=== PATIENT | male | born 1950 | race African-American/Black ===

== ENCOUNTER 2020-01-05 13:35 | Inpatient (IN) | payer OTHER ==
[~2020-01-05] VITALS: Ht 190.5 cm; Wt 119.4 kg
[2020-01-05 13:42] VITALS: BP 109/70
[2020-01-05 16:54] LABS: MCH 27.9 pg (26.0-34.0)
[2020-01-05 16:57] LABS: HEMATOCRIT 39.6 % (42.0-52.0); HEMOGLOBIN 12.7 gm/dL (14.0-18.0); MCV 87.1 fL (80.0-100.0); RBC 4.54 mil/uL (4.50-6.00); RDW 14.3 % (10.5-14.5)
[2020-01-05 16:58] LABS: WBC 58.2 thou/uL (4.0-11.0)
[2020-01-05 17:00] LABS: ANION GAP 9 mmol/L (7-16); BUN 23 mg/dL (7-18); CALCIUM 9.4 mg/dL (8.5-10.1); CHLORIDE 99 mmol/L (98-107); CO2 27 mmol/L (21-32); CREATININE 1.6 mg/dL (0.7-1.3); GLUCOSE 114 mg/dL (74-106); POTASSIUM 4.2 mmol/L (3.5-5.1); SODIUM 135 mmol/L (136-145)
[2020-01-05 17:11] LABS: DIRECT BILIRUBIN 0.4 mg/dL (<0.1-0.2); LIPASE 61 U/L (73-393); SGOT 48 U/L (15-37); SGPT 56 U/L (30-65); TOTAL BILIRUBIN 0.8 mg/dL (0.2-1.0); TOTAL PROTEIN 8.7 g/dL (6.4-8.2); TROPONIN-I <0.06 ng/mL (<0.06)
[2020-01-05 17:57] LABS: ABSOLUTE NEUTROPHILS 53.5 thou/uL (1.4-8.2); PLATELET COUNT 298 thou/uL (150-400); PLATELET ESTIMATE NORMAL
[2020-01-05 18:13] LABS: URINE BLOOD TRACE (Negative); URINE CLARITY CLEAR; URINE GLUCOSE-RANDOM* NEGATIVE (Negative); URINE KETONES NEGATIVE (Negative); URINE LEUKOCYTES-REFLEX TRACE (Negative); URINE NITRITE-REFLEX NEGATIVE (Negative); URINE PROTEIN (DIPSTICK) NEGATIVE (Negative); URINE SPECIFIC GRAVITY 1.025 (1.005-1.035)
[2020-01-05 18:15] LABS: ICTOTEST (BILI CONFIRMATORY) Negative (Negative); URINE BILIRUBIN NEGATIVE (Negative); URINE COLOR DK YELLOW
[2020-01-05 21:06] VITALS: BP 123/76; BP 133/72
[2020-01-06] MEDS ORDERED: NORVASC 2.5 MG2.5 M1 (00:02)
[2020-01-06] MEDS ORDERED: MELOXICAM15 MG (00:02)
[2020-01-06] MEDS ORDERED: FAMOTIDINE 20 M20 MG (00:03)
[2020-01-06] MEDS ORDERED: FLEXERIL (00:03)
[2020-01-06] MEDS ORDERED: OSTEO BI-FLEX1 EAC1 ×2 (00:04→00:05)
[2020-01-06] MEDS ORDERED: METRONIDAZOLE500 M4 ×3 (00:04→00:07)
[2020-01-06] MEDS ORDERED: D3-200050 MCG (00:05)
[2020-01-06] MEDS ORDERED: B COMPLEX1 EACH (00:06)
[2020-01-06] MEDS ORDERED: CENTRUM SILVER1 EAC7 (00:07)
[2020-01-06] MEDS ORDERED: TRAVOPROST2.5 ML (00:07)
[2020-01-06] MEDS ORDERED: DORZOLAMIDE 2%10 ML (00:08)
--- NOTE | 2020-01-06 00:52 | NUR ---
PT ADMITTED TO THE UNIT AT APPROXIMATELY 2100. PT IS A/O X4 AND VERY PLEASANT. EMERGENCY DEPARTMENT NOTIFIED PHYSCIAN OF PATIENTS ADMISSION. PT DOES NOT C/O PAIN OR DISCOMFORT AT THIS TIME. PT IS CURRENTLY IN HIS BED AND APPEARS TO BE SLEEPING. WILL CONTINUE TO MONITOR. FALL PRECAUTIONS ARE IN PLACE, CALL LIGHT IS WITHIN REACH.
[2020-01-06 04:11] VITALS: BP 122/63
[2020-01-06 05:51] LABS: HEMATOCRIT 36.2 % (42.0-52.0); HEMOGLOBIN 11.4 gm/dL (14.0-18.0); MCH 27.7 pg (26.0-34.0); MCHC 31.6 g/dL (28.0-37.0); MCV 87.5 fL (80.0-100.0); PLATELET COUNT 272 thou/uL (150-400); RBC 4.14 mil/uL (4.50-6.00); RDW 14.3 % (10.5-14.5)
[2020-01-06 06:48] LABS: ABSOLUTE NEUTROPHILS 48.5 thou/uL (1.4-8.2)
[2020-01-06 06:49] LABS: PLATELET ESTIMATE NORMAL
[2020-01-06 07:50] VITALS: BP 123/78
--- NOTE | 2020-01-06 08:47 | EKG ---
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
--- NOTE | 2020-01-06 15:05 | NUR ---
PT ADMITTED RELATED TO N/V DEHYDRATION. CM REVIEWED CHART AND SPOKE WITH CARE TEAM. CM CALLED ANDS POKE WITH PT THIS DAY. PT APPEARED TO BE A&O X4. CM ROLE INTRODUCED. PT INDICATED HE LIVES IN AN APARTMETN WITH A ROOMMATE WITH 2-3 STEPS TO ENTER AND NO STEPS INSIDE. 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 PT INDICATED NO DME. PT INDICATED HE PLANS TO RETURN HOME ONCE MEDICALLY STABLE. PT TO HAVE A CT OF ABD AND PELVIS. GI INDICATED THEY MIGHT NEED TO DO AN EGD. CM TO FOLLOW INDICATED WITH DC PLANNING. SHOULD PT BE MEDICALLY STABLE TO DC OVER WEEKEND AND NEED HH SERVICES [facility] AT FAX ORDERS TO .
--- NOTE | 2020-01-06 15:46 | HC ---
[facility] [place] [address] CONSULTATION Name: ERIC ALLEN Room #: 457-P ADM IN M.R.#: [id number] Admission: 01/05/20 Attend Phys: Josue Iyer MD, [facility] Discharge: Date of : 48 Report #: [id number] THIS REPORT FOR: cc: Josue Iyer MD LOCATED WITHIN [facility] FACE Josue Iyer MD [facility] Arpan Osorio MD ~ CC: Niles Iyer MD REQUESTING PHYSICIAN: Josue Iyer MD REASON FOR CONSULTATION: Leukocytosis. HISTORY OF PRESENT ILLNESS: The patient is a 69-year-old male from the [place] area, who has about a 5 or 8-month history of slow change in his bowels without any blood in his urine or stool, also sweats for the last month or two. Also noted to have leukocytosis about 2 months ago with a white count when he saw Dr. Curtis about a month ago of 25,000. He had a bone marrow biopsy with standard cytogenetics were normal. Next generation sequencing were normal except for a variant of uncertain significance and ADA. The flow cytometry did not reveal monoclonal population and the pathology morphology review did not reveal any underlying specific abnormalities other than mild hypercellularity. There might have also been a few extra megakaryocytes, but no signs of leukemia, lymphoma, infiltrative process or granulomas were seen. The patient says that his bowels a little bit slower than usual for a couple of months. He has not seen any blood in his urine or stool. He says his last colonoscopy was about 7 years or so ago, somewhere in [facility]. He has also had trouble with nausea and vomiting for about 2-3 weeks. This seems to occur about 30-60 minutes after eating. It is also associated with lower abdominal almost near the umbilicus pain. He said that about 9 months ago, he weighed 200 pounds. He has been told he weighs about 260 lately. He has not had any rash. He has old ankle swelling, no worse than usual. 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 Nonsmoker, no alcohol, no street drugs. FAMILY HISTORY: Father had what sounds like a stroke about age 50. May have been a little bit heavy on the alcohol. Mother had diabetes. Two sisters; one had diabetes, one had some type of a stomach infection. Three children alive and well. No pets at home. MEDICATIONS: At this time in the hospital include famotidine which I just added, Tylenol p.r.n., Zofran p.r.n., IV fluids. [facility] [address] [place] [address] CONSULTATION Name: ERIC ALLEN Room #: 457-P [facility] IN M.R.#: [id number] Admission: 01/05/20 Attend Phys: Josue Iyer MD, FAAF Discharge: Date of : 48 Report #: [id number] LABORATORY DATA: Lab tests available from this admission include a BUN of 23, creatinine of 1.6. Liver functions normal, though his alkaline phosphatase was 228; ALT 56, which is normal. Total protein 8.7, which is slightly high with an albumin of 3. C-reactive protein 210.9, which is elevated. White count was 58.2, today it is 51. Hemoglobin was 12.7, today it is 11.4 with an MCV of 87.5, RDW 14.3, platelets of 272, 87% neutrophils, 5% bands, 1% lymphocytes, 7% monocytes with an AST of 53.5. Sed rate 73. UA; nitrite negative, no cells, no protein. Imaging done this admission include a KUB which talked about elevation of the right diaphragm. No evidence of pneumonia, pneumothorax or pleural effusion. No evidence of obstruction, ileus or free air. Osteophytes noted. Note that the CAT scan chest, abdomen and pelvis has been ordered by myself is currently pending. PHYSICAL EXAMINATION: VITAL SIGNS: Height 6 feet 3 inches, 190.5 cm; weight 260 pounds, which is 118.2 kilograms. MOOD: Pleasant, conversant. NEUROLOGIC: Speech and thought pattern normal, slightly anxious. HEART: Regular rate. ABDOMEN: Slightly obese. No definite masses, but we will probably do a portillo exam after dictation complete and may amend this. LYMPHATICS: No lymph nodes noted in the neck, axilla or groin. EXTREMITIES: Have SCDs in place. May have some trace edema. SKIN: The patient's skin is slightly wet from sweats. ASSESSMENT AND PLAN: 1. Leukocytosis with 40-pound weight loss, night sweats and abdominal pain, most likely elevated white count is reactive to underlying process yet to be determined. I am somewhat concerned with elevation of sed rate and C-reactive protein. Also, this may represent a lymphoproliferative disorder or other malignancy. We will obtain CAT scan chest, abdomen and pelvis. We will also consult Gastroenterology because of the GI symptoms and also begin the patient on Pepcid. 2. Mild anemia. Continue following. 3. History of glaucoma. Meds per others. We will follow with you. <ELECTRONICALLY SIGNED> By: Arpan Osorio MD 01/06/20 1546 0752 09 Arpan Osorio MD /jose
--- NOTE | 2020-01-06 18:55 | NUR ---
Assumed pt care at 7am.Pt in bed resting without c/o.Assessment completed.vss. Dr Jaramillo here,order noted.Pt kept npo for ct that was completed after breakfast.Pt resumed previous diet.Dr Kirkland here and reviewed ct report,he wanted this rn notified Dr Iyer about the ct scan report.Dr iyer here rounded on pt later this evening and discussed the care option with pt and his son. Will continue to monitor.
[2020-01-06 19:09] VITALS: BP 134/75
[2020-01-07 01:39] LABS: URINE BILIRUBIN NEGATIVE (Negative); URINE BLOOD TRACE (Negative); URINE CLARITY CLEAR; URINE COLOR YELLOW; URINE GLUCOSE-RANDOM* NEGATIVE (Negative); URINE KETONES TRACE (Negative); URINE LEUKOCYTES-REFLEX NEGATIVE (Negative); URINE NITRITE-REFLEX NEGATIVE (Negative); URINE PROTEIN (DIPSTICK) TRACE (Negative)
[2020-01-07 03:42] VITALS: BP 119/70
--- NOTE | 2020-01-07 03:51 | NUR ---
PATIENT AOX4 MAKES NEEDS KNOWN. PATIENT HAD HIGH TEMP X2 AND CHARTED ON [employer], AND PATIENT HEART RATE WAS >120. CALLED OFF PREMISE SERVICE REPRESENTATIVE NEW ORDER OF UA, 2 SETS OF BLOOD CULTURES, PORTABLE X RAY, ZOYSN 2.25 GRAM Q 8 HOURS, X1 DOSE OF VANCO. CBC WITH DIFF, CMP AND LIPASE IN THE AM. ABT GIVEN AND AWAITING FOR LAB RESULTS. PATIENT VERBALISED FEELING BETTER. VS WNL. PATIENT IN BED ASLEEP AT THIS TIME BREATHING REGULAR AND UNLABOURED.
[2020-01-07 06:09] LABS: HEMATOCRIT 35.4 % (42.0-52.0); MCH 27.5 pg (26.0-34.0); MCHC 31.2 g/dL (28.0-37.0); MCV 88.4 fL (80.0-100.0); RDW 14.4 % (10.5-14.5)
[2020-01-07 06:11] LABS: WBC 50.7 thou/uL (4.0-11.0)
[2020-01-07 06:22] LABS: ALBUMIN 2.4 g/dL (3.4-5.0); CALCIUM 8.4 mg/dL (8.5-10.1); CREATININE 1.5 mg/dL (0.7-1.3); POTASSIUM 4.1 mmol/L (3.5-5.1); TOTAL BILIRUBIN 0.5 mg/dL (0.2-1.0); TOTAL PROTEIN 7.2 g/dL (6.4-8.2)
[2020-01-07 07:41] VITALS: BP 127/76
[2020-01-07 12:46] VITALS: BP 125/74
[2020-01-07 17:28] VITALS: BP 132/82
[2020-01-07 19:40] VITALS: BP 136/69
--- NOTE | 2020-01-08 01:00 | NUR ---
ASSUMED CARE OF PT AT 1900. PT IS A/O X4. PT IS VERY LETHARGIC AND STATED HE JUST "DON'T FEEL WELL." PT HAD AN ELEVATED FEVER. MEDICATION GIVEN. PT IS AFEBRILE AT THIS TIME. NO COMPLAINTS OF PAIN, NAUSEA, OR DISCOMFORT UPON ASSESSMENT. PT IS NOW LYING IN HIS BED AND APPEARS TO BE SLEEPING. CALL LIGHT IS WITHIN REACH. WILL CONTINUE TO MONITOR.
[2020-01-08 05:52] LABS: HEMATOCRIT 36.4 % (42.0-52.0); HEMOGLOBIN 11.4 gm/dL (14.0-18.0); MCH 27.8 pg (26.0-34.0); MCHC 31.4 g/dL (28.0-37.0); MCV 88.4 fL (80.0-100.0); PLATELET COUNT 267 thou/uL (150-400); RBC 4.12 mil/uL (4.50-6.00); RDW 14.6 % (10.5-14.5)
[2020-01-08 05:57] LABS: WBC 51.5 thou/uL (4.0-11.0)
[2020-01-08 06:00] LABS: CALCIUM 8.4 mg/dL (8.5-10.1); CREATININE 1.7 mg/dL (0.7-1.3); POTASSIUM 4.3 mmol/L (3.5-5.1)
[2020-01-08 06:57] LABS: ABSOLUTE NEUTROPHILS 42.7 thou/uL (1.4-8.2); PLATELET ESTIMATE NORMAL
[2020-01-08 07:38] VITALS: BP 126/71
--- NOTE | 2020-01-08 13:30 | NUR ---
called, answering service agreed to send a message to Dr. Iyer: patient complains of abdomen pain in the left side, worse than ever, asking for some pain medication stronger than Tylenol.
--- NOTE | 2020-01-08 15:03 | NUR ---
Patient complains that Tramadol does not work on the pain, [phone] called, messaged sent to Jaylon Capone.
[2020-01-08 15:58] VITALS: BP 152/92
[2020-01-08 20:09] VITALS: BP 124/67
[2020-01-09] VITALS (16 sets, daily range): BP systolic 116–172; BP diastolic 72–100
[2020-01-09 04:30] LABS: APTT 34.5 Seconds (24.5-32.8); INR 1.2; PROTIME 11.9 Seconds (9.3-11.4)
[2020-01-09 04:36] LABS: ALBUMIN 2.3 g/dL (3.4-5.0); CALCIUM 8.5 mg/dL (8.5-10.1); POTASSIUM 4.9 mmol/L (3.5-5.1); TOTAL BILIRUBIN 0.6 mg/dL (0.2-1.0); TOTAL PROTEIN 7.8 g/dL (6.4-8.2)
[2020-01-09 04:38] LABS: HEMOGLOBIN 12.1 gm/dL (14.0-18.0); MCH 27.4 pg (26.0-34.0); MCV 88.6 fL (80.0-100.0); PLATELET COUNT 312 thou/uL (150-400); RBC 4.41 mil/uL (4.50-6.00); RDW 14.5 % (10.5-14.5)
[2020-01-09 04:39] LABS: WBC 64.9 thou/uL (4.0-11.0)
[2020-01-09 05:12] LABS: LARGE PLATELETS OCCASIONAL
--- NOTE | 2020-01-09 14:20 | NUR ---
PT IS TO HAVE LIVER BIOPSY THIS DAY. NURSE TO INQUIRE TO PHYSICIAN ABOUT PT AND OT EVALS THEY AREN'T ORDRED AND PHYSICIAN SITES WEAKNESS ONE REASON FOR VISIT. CM TO FOLLOW INDICATED WITH DC PLANNING.
--- NOTE | 2020-01-09 21:06 | NUR ---
REPORT RECEIVED FROM DORENE Connolly/RN, ASSUMED CARE OF THE PATIENT AT AROUND 1600. PATIENT ALERT AND ORIENTED X 4. REFUSED DINNER, BUT KEPT HIS ENSURE, STATES EATING MAKES IT WORST. PAIN LEVEL 3/10, LAST PAIN MED GIVEN AT 1530. SPOKE WITH THE DAUGHTER/JAYLYN AND UPDATE WAS GIVEN. WILL CONTINUE TO MONITOR.
--- NOTE | 2020-01-10 05:00 | NUR ---
Assumed pt care at 1900. A/OX4, VSS. C/o abd pain,Nausea medicated per EMAR with relief reported. Continent of B&B. IVF/ABTs infusing w/o any problems voiced. Pt verbalizes feeling better this morning. Fall precautions in place.
[2020-01-10 08:49] VITALS: BP 142/85
[2020-01-10 15:13] VITALS: BP 121/65
--- NOTE | 2020-01-10 15:16 | NUR ---
PT AND OT ASSESSED PT THIS DAY. BOTH INDICATED THAT THEY THOUGHT PT WOULD PROGRESS TO BE SAFE TO BE ABLE TO DC BACK TO HIS APARTMENT WITH HOME HEALTH SERVICES ONCE MEDICALLY STABLE. STILL AWAITING LIVER BIOPSY RESULTS. CM TO FOLLOW INDICATED WITH DC PLANNING.
--- NOTE | 2020-01-10 16:12 | H ---
[facility] [place] [address] HISTORY AND PHYSICAL Name: ERIC ALLEN Room #: 457-P [facility] IN M.R.#: [id number] Admission: 01/05/20 Attend Phys: Josue Iyer MD, FAAF Discharge: Date of : 48 Report #: [id number] THIS REPORT FOR: cc: Josue Iyer MD FAA FACEP Josue Iyer MD FAA FACEP Josue Iyer MD FAA FACEP ~ CC: Josue Osorio MD DATE OF SERVICE: 01/05/2020 CHIEF COMPLAINT: Nausea, vomiting and weakness. HISTORY OF PRESENT ILLNESS: The patient is a 69-year-old black male, patient of mine, understudy at currently for leukocytosis. His white count was 20-25,000 at time of consultation with Hematology/Oncology there about 6-8 weeks ago. He had a bone marrow biopsy about 2-3 weeks ago, which was reported to show no evidence of cancer verbally to him. Over the past 2 weeks, he has been ill with nausea, vomiting and general debility. He was evaluated in the Emergency Room by my direction on the day of admission, 01/05/2020, and white count there was 58.2. He was admitted, IV fluids were instituted as well as antiemetics and Hematology/Oncology consult was obtained to evaluate his severe leukocytosis. PAST MEDICAL HISTORY: Colon polyps, glaucoma, hypertension, gastroesophageal reflux disease, constipation. MEDICATIONS: Norvasc 10 mg p.o. daily, meloxicam 15 mg 1 p.o. daily p.r.n. pain, Flexeril 10 mg 1 p.o. t.i.d. p.r.n. muscle spasm, famotidine 20 mg 1 p.o. b.i.d., Benefiber and vitamin D3. ALLERGIES: No known drug allergies. FAMILY HISTORY: No cancers. 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 Nonsmoker, nondrinker. Has a son in the [place] area. REVIEW OF SYSTEMS: GENERAL: He has had frequent nausea and vomiting, difficulty eating over the last 2 weeks, generalized debility. EYES: No visual changes. ENT: No problems with hearing, swallow, taste or smell. CARDIOVASCULAR: No chest pain or palpitations. RESPIRATORY: No difficulty breathing. GASTROINTESTINAL: Nausea and vomiting. [facility] [address] [place] [address] HISTORY AND PHYSICAL Name: ERIC ALLEN Room #: 457-P [facility] IN M.R.#: [id number] Admission: 01/05/20 Attend Phys: Josue Iyer MD, FAAF Discharge: Date of : 48 Report #: [id number] GENITOURINARY: No problems urinating. MUSCULOSKELETAL: He does have arthritis, kept at bay with meloxicam. NEUROLOGIC: No paresis, paralysis or paresthesias. PSYCHIATRIC: No disturbing thoughts. DERMATOLOGIC: No disturbing lesions or rash. Remainder of systems review is negative. OBJECTIVE: VITAL SIGNS: Temperature is 36.8, pulse 118, respirations 14, blood pressure 109/70, pulse ox on room air is 97%. GENERAL: He is alert, pleasant, in conversation. No acute distress. Denies pain. HEENT: Pupils equal, round, reactive to light and accommodation. Extraocular muscles intact. Pharynx unremarkable with slightly moist mucous membranes. NECK: Supple. COR: S1, S2 regular, tachycardia. CHEST: Clear. ABDOMEN: Soft, nontender. EXTREMITIES: No cyanosis, clubbing or edema. NEUROLOGIC: Intact without focal deficit. LABORATORY EVALUATION: CBC: White count is 58.2, hemoglobin 12.7, hematocrit 39.6, platelets 298,000. Serum chemistry: Sodium 135, potassium 4.2, chloride 99, CO2 of 27, BUN 23, creatinine 1.6. BNP is 220. Lactate 1.5, alkaline phosphatase 228. Troponin less than 0.06. Direct bilirubin 0.4, total bilirubin 0.8, calcium is 9.4, AST 48, ALT 56, total protein 8.7, albumin 3.0, lipase 61. Acute abdominal series x-rays done from the Emergency Department show elevation of right hemidiaphragm with no evidence of pneumonia, pneumothorax or pleural effusion. Upright and supine views of the abdomen normal without obstruction or ileus or free air. Osteophytes seen at multiple levels in the lower thoracic and lumbar spine. ASSESSMENT: Marked leukocytosis, nausea and vomiting, volume depletion and debility. PLAN: Admit to hospital, IV fluid rehydration, Hematology/Oncology consult, antiemetics, hyperviscosity concern, consider Lovenox as in preventive options. <ELECTRONICALLY SIGNED> By: Josue Iyer MD, KISHA, FACEP 01/10/20 1612 1745 1805 Josue Iyer MD, KISHA, FACEP /nt
--- NOTE | 2020-01-10 20:39 | NUR ---
ASSUMED CARE OF PATIENT AT 0715, PATIENT ALERT AND ORIENTED X 4. DENIEDURING REPORT, BUT C/O PAIN WITH RIGHT ABD. LOWER QUAD. PATIENT RECEIVED FENTANYL 75MCG THIS AM. PATIENT C/O NAUSEA THIS AM, RECEIVED ZOFRAN 4MG IV. PATIENT HAD GOOD PAIN RELIEF AMD NAUSEA IMPROVED. PATIENT UNABLE TO EAT ANY OF THE MEALS TODAY, STATES WHEN HE EATS PAIN BECOMES WORSE. PT/OT ORDERED AND PATIENT WALKED IN HALLWAYS WITH PT, UP TO CHAIR FOR A COUPLE OF HOURS. UPDATE GIVEN TO SON/BRYCE THIS SHIFT. PATIENT CONTINUES WITH D51/2 NS WITH 20 KCL AT 100CC/HR. ZOSYN STILL CONTINUES. PO PAIN MEDICATION ORDER PER DR BLACK,Roger DN ADDED COMPAZINE IF ZOFRAN NOT EFFECTIVE. WILL CONTINUE TO MONITOR.
[2020-01-10 21:27] VITALS: BP 154/98
--- NOTE | 2020-01-11 04:37 | NUR ---
Assumed pt care at 1900. A/OX4,VSS. Denied pain,N/V at the beginning of the shift. C/o acidity/nausea at this time as well as pain, medicated per EMAR and effective. Pt's IV on left hand leaking,re-inserted after 5 attempts to RAC by the doping supervisor. Pt is continent of bladder voiding per urinal adequate amt. Fall precauitons in place,calls approp. Sinus tachy/SR on the monitor. Resting quietly at this time, will continue to monitor pt.
[2020-01-11 06:32] LABS: HEMOGLOBIN 11.5 gm/dL (14.0-18.0); RBC 4.21 mil/uL (4.50-6.00); RDW 14.6 % (10.5-14.5)
[2020-01-11 06:37] LABS: HEMATOCRIT 36.7 % (42.0-52.0); MCH 27.3 pg (26.0-34.0); MCHC 31.3 g/dL (28.0-37.0); MCV 87.1 fL (80.0-100.0); PLATELET COUNT 308 thou/uL (150-400)
[2020-01-11 06:43] LABS: WBC 56.4 thou/uL (4.0-11.0)
[2020-01-11 07:00] LABS: ALBUMIN 2.2 g/dL (3.4-5.0); CREATININE 1.8 mg/dL (0.7-1.3); POTASSIUM 4.6 mmol/L (3.5-5.1); TOTAL BILIRUBIN 0.8 mg/dL (0.2-1.0); TOTAL PROTEIN 7.7 g/dL (6.4-8.2)
[2020-01-11 07:12] VITALS: BP 111/71
[2020-01-11 08:50] LABS: ABSOLUTE NEUTROPHILS 49.1 thou/uL (1.4-8.2); LARGE PLATELETS OCCASIONAL
[2020-01-11 15:46] VITALS: BP 127/68
--- NOTE | 2020-01-11 16:07 | PATH ---
[facility] [address] [place] [address] PATHOLOGY RPT PROCEDURE Name: ABHINAV ALLEN Room #: 457-P ADM IN M.R.#: [id number] Admission: 01/05/20 Date of : 48 Discharge: Report #: [id number] Path Case #: [id number] L[facility] Accession Number: [id number] . 01 Material submitted: . liver - LIVER BIOPSY . 01 Clinical history: . N/V, dehydration, multiple masses, leukocytosis . 02 Diagnosis: Liver, needle core biopsy: - MODERATELY DIFFERENTIATED ADENOCARCINOMA, SEE COMMENT. (IUV:web marketing coordinator; 01/11/2020) MBR 01/11/2020 1423 Local . 02 Comment: Examination shows a gland forming malignancy with numerous mitotic figures and high nuclear to cytoplasmic ratio. Occasional intracellular mucin is identified. Based on the EMR of elevated CEA, as well as CA19-9, as well as pancreatic mass a limited panel of immunohistochemical stains is performed. The tumor shows strong membranous reactivity with CK7. Scattered faint reactivity is noted in approximately 10% of the cells with CK19. CDX2, [place] 3, CK20, as well as TTF-1 are nonreactive within the tumor. The immunohistochemical stains likely are supportive of an adenocarcinoma of hepatobiliary origin. The nonreactive immunohistochemical stains argue against a gastrointestinal primary, as well as a lung adenocarcinoma in addition to a poorly differentiated hepatocellular carcinoma. . Co-review: Reviewed by A1-level [address] Michaela Pizarro. . Findings of this case are telephoned to Miss Lopez, Dr. Arpan Osorio's nurse. A voicemail message is left on her telephone line at approximately 2:10 p.m. on 01/11/2020. Findings are discussed with Dr. Petty 3:45 pm on 01/11/2020. . . . . . (IUV:web marketing coordinator; 01/11/2020) . 02 Electronically signed: . Claudia Sandoval MD, Pathologist NPI- [id number] . [address] [place] [address] PATHOLOGY RPT PROCEDURE Name: ABHINAV ALLEN Room #: 457-P [facility] IN M.R.#: [id number] Admission: 01/05/20 Date of : 48 Discharge: Report #: [id number] Path Case #: [id number] Gross description: . The specimen is received in formalin, labeled "Abhinav Ramses, liver". Received are three needle cores of pale stauffer to orange-stauffer soft tissue ranging in length from 0.5 to 1.2 cm in length by 0.1 cm in diameter. The specimen is submitted entirely in cassette A1 through A3. (CAA; 01/09/2020) QAC/QAC 01/09/2020 1621 Local . 02 Pathologist provided ICD-10: C22.9 . 02 CPT . 404059, R03398, G26048 Specimen Comment: A courtesy copy of this report has been sent to [phone] Specimen Comment: Report sent to Performed at: [address], [place], [place] [id number] MD Antwon Pedro MD Phone: [phone] Performed at: [address] [id number] MD Claudia Sandoval MD Phone: [phone]
--- NOTE | 2020-01-11 19:32 | NUR ---
ASSUMED CARE OF THE PATIENT AT 0715, PATIENT ALERT AND ORIENTED X 4, PATIENT UP WITH PT TO THE CHAIR, PATIENT ATE SOME OF BREAKFAST AND LUNCH, BUT CAUSES NAUSEA EACH TIME. ZOFRAN 4MG AND COMPAZINE PO GIVEN. C/O PAIN WITH ABDOMEN, OXYCODONE [address] FLORES HERE THIS AFTERNOON, PLAN IS STAY 2 MORE DAYS AND THEN HOME WITH HOMEHEALTH. BIOPSY RESULTS NOT AVAILABLE YET, UPDATE GIVEN TO DAUGHTER/JAYLYN AND SON/ERIC. NO BM THIS SHIFT. WILL CONTINUE TO MONITOR.
[2020-01-11 19:55] VITALS: BP 128/78
[2020-01-12 03:10] VITALS: BP 130/84
--- NOTE | 2020-01-12 04:53 | NUR ---
Assumed pt care at 1900. A/OX4,VSS. Denied any needs at HS. No pain or N/V. C/o abd pain this morning LOP 7/10 medicated with Oxycodone 5mg with relief reported. IVF/ABTs infusing via RAC w/o any problems. Pt voiding per urinal. Fall precautions in place. NSR on telemetry. Resting quietly at this time,will continue to monitor pt.
[2020-01-12 07:11] VITALS: BP 135/84
--- NOTE | 2020-01-12 12:25 | NUR ---
Onc had discused with pt "option of chemotherapy with recipe called flolfiririnox. Which would require port placement. Discussed option of second opinions if he wishes. Discussed completing antibiotics and port placement and chemotherapy. Could do visit via telehealth next week to discuss with patient and family. Would like patient off antibiotics before considering chemotherapy." Cm received pc from nurse indicating that pt's son was in room asking about dc planning. Cm called and spoke with pt and indicated that treatment plan would be determined by pt, onc, and dr. chowdhury and that pt and ot had indicated that pt would be safe to return home once medically stable with hh services. Pt indicated no preference for hh provider. Cm indicated that referrals would be sent once dc is indicated. Cm to follow as indicated with dc planning.
[2020-01-12 14:48] VITALS: BP 114/62
--- NOTE | 2020-01-12 15:19 | NUR ---
Assumed pt care at 7am.Pt in bed resting without c/o.Assessment completed.vss. Dr Jaramillo here early this am,notified this rn that pt will possibly need port-a-cath for chemo but has to discuss with Dr Iyer.Am med given and well tolerated with diet.Pt ambulated in hallways with therapist later this shift. Good endurance noted.Received call from pt dtr,updates given.Son came around lunch to visit and updates given as well.Pt in bed resting and watching tv. Will continue to monitor.
[2020-01-12 20:15] VITALS: BP 124/61
[2020-01-13 00:32] VITALS: BP 142/62
--- NOTE | 2020-01-13 03:57 | NUR ---
patient aox4 makes needs known. patient was coughing and had a heart rate of >120. called dr. gannon for robittussium with codine 5ml/10ml q 6 hours prn. and ekg. patient requested ekg in the am. fall precaution in place. patient in bed asleep at this time breathing regular and unlaboured.
[2020-01-13 07:20] VITALS: BP 110/56
--- NOTE | 2020-01-13 09:29 | EKG ---
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 Scientist: CELSO : 1950 Requested By: Josue Iyer Order Number: [id number] MD: Hernán Clark Measurements Intervals [place] Rate: 93 P: 29 AK: 148 QRS: 58 QRSD: 89 T: 14 QT: 396 QTc: 493 Interpretive Statements Sinus rhythm Atrial premature complexes Poor R wave progression Compared to ECG 01/05/2020 15:17:12 Atrial premature complex(es) now present Electronically Signed On 01-13-2020 9:29:03 CDT by Hernán Clark [email or web address] <ELECTRONICALLY SIGNED> By: Hernán Clark MD, [facility] 01/13/2029 2 2 Hernán Clark MD, [facility] /EPI
[2020-01-13 15:25] VITALS: BP 127/46
--- NOTE | 2020-01-13 15:30 | NUR ---
Care team indicaed that pt has multiple masses involving pancreas, liver, possibly lung consistent with metastatic cancer; LIVER BX SHOWED MODERATELY DIFFERENTIATED ADENOCARCINOMA. 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 pt is on 3L via nc at this time. cm had sent referral to a for services upon dc. Physicain hadn't indicated anticipated dc home over weekend. Pt will likely need o2 testing for possible o2 needs upon dc. Should pt be medically stable to dc home over weekend and need home o2 please contact [facility] at fax . notify a at fax orders to . Cm to follow as indicated with dc planning.
--- NOTE | 2020-01-13 17:02 | NUR ---
PT ASSESSED AT START OF SHIFT. PT STATES HE'S FEELING SOME BETTER. DENIES NAUSEA OR PAIN. AMBULATED THE HALLS TWICE W/ THERAPIST AND HAD SOME SOB AFTERWARDS BUT DID WELL. EATING SM AMTS. COUGHING SOME INTERMITTENTLY. EXPLAINED HE WILL NEED O2 AT HOME.
[2020-01-13 20:52] VITALS: BP 112/70
[2020-01-14 00:15] VITALS: BP 130/78
--- NOTE | 2020-01-14 03:32 | NUR ---
PATIENT AOX4 MAKES NEEDS KNOWN. PATIENT USING URINAL AT NIGHT. PATIENT IS CALM AND COOEPRATIVE WITH CARE AND MEDS. FALL PRECAUTION IN PLACE.PATIENT IN BED ASLEEP AT THIS TIME BREATHING REGULAR AND UNLABOURED.
[2020-01-14 08:00] VITALS: BP 121/71
[2020-01-14 15:09] VITALS: BP 118/69
--- NOTE | 2020-01-14 19:56 | NUR ---
Assumed pt care at 7am.Pt in and out of bed with assist.Fair endurance noted. Assessment completed.vss.Pt tolerated meds but has fair appetite.Dr Iyer here,order noted.Updates given to pt family whe called today.Pt will possibly dc home on thursday after chemo access placement.No soa or verbal c/o.Report off to star moise.
[2020-01-14 21:46] VITALS: BP 123/77
--- NOTE | 2020-01-15 05:32 | NUR ---
RECIEVED CARE OF THIS PATIENT AT 1900. PATIENT ALERT AND ORIENTED X4. UP WITH SBA. USES URINAL. C/O PAIN AND NAUSEA, MED GIVEN FOR BOTH. IV PATENT IN RAC WITH FLUIDS INFUSING. O2 AT 3L/NC. SLEPT OFF AND ON DURING NIGHT.
[2020-01-15 08:40] VITALS: BP 113/75
[2020-01-15 15:32] VITALS: BP 119/82
[2020-01-15 19:02] VITALS: BP 115/66
--- NOTE | 2020-01-15 20:53 | NUR ---
ASSUMED PT CARE AT 0700. PT A X OX 4. ON 3L/O2/NC. STANDBY ASST. USES URINALS AT BEDSIDE.IV RIGHT UPPER ARM. PT'S SON VISITE HIM TODAY, BUT PT WAS SLEEPIND SO SON DIDN'T WAKE HIM UP. CALL LIGHT IN REACH. FALL PRECT IN PLACE. SHIFT REPORT GIVEN TO NIGHT NURSE.
--- NOTE | 2020-01-16 02:27 | NUR ---
VSS-AFEBRILE. CONGESTED COUGH, DID NOT SEE SPUTUM. C/O LOWER BACK PAIN THAT RADIATES AROUND TO ABDOMEN. PAIN WELL CONTROLLED WITH IV AND PO PAIN MEDICATIONS. FALL PRECAUTIONS IN PLACE, CALLS APPROPRIATELY FOR ANY NEEDED ASSISTANCE.
[2020-01-16 06:21] LABS: RDW 14.5 % (10.5-14.5)
[2020-01-16 06:25] LABS: HEMATOCRIT 35.4 % (42.0-52.0); MCH 27.6 pg (26.0-34.0); MCHC 31.2 g/dL (28.0-37.0); MCV 88.4 fL (80.0-100.0); PLATELET COUNT 334 thou/uL (150-400); RBC 4.01 mil/uL (4.50-6.00)
[2020-01-16 06:34] LABS: WBC 57.4 thou/uL (4.0-11.0)
[2020-01-16 06:37] LABS: ALBUMIN 2.1 g/dL (3.4-5.0); CALCIUM 8.9 mg/dL (8.5-10.1); CREATININE 1.6 mg/dL (0.7-1.3); POTASSIUM 4.8 mmol/L (3.5-5.1); TOTAL BILIRUBIN 0.7 mg/dL (0.2-1.0)
[2020-01-16 07:31] VITALS: BP 112/72
--- NOTE | 2020-01-16 13:53 | NUR ---
PT TO HAVE HIS POWERPORT PLACE SOON LIKELY TODAY. WILL NEED EXERCISE OXIMETRY DONE WITHIN 72 HRS OF DISCHARGE TO DETERMINE IF PT NEEDS HOME O2. CM FOLLOWING REGARDING DC PLANNING. REFERRAL HAD BEEN SENT TO A FOR POSSIBLE SERVICES UPON DC. CM TO FOLLOW INDICATED WITH DC PLANNING.
[2020-01-16 14:33] LABS: ABSOLUTE NEUTROPHILS 50.5 thou/uL (1.4-8.2); ANISOCYTOSIS 1+; ATYPICAL LYMPHS 1 %; POLYCHROMASIA SLIGHT
[2020-01-16 15:19] VITALS: BP 102/65
[2020-01-16 19:15] VITALS: BP 110/64
--- NOTE | 2020-01-16 20:52 | NUR ---
ASSUMED PT CARE AT 0700. A X O X4. ON 3L/o2/NC. IV RT UPPER ARM. 1 PERSON ASST. CALL LIGHT IN REACH. WILL CALL APPROP. MONITORED EVERY HOUR. NO C/O PAIN. SHIFT REPORT GIVEN TO NIGHT NURSE.
[2020-01-17 07:00] VITALS: BP 109/59
--- NOTE | 2020-01-17 09:31 | NUR ---
Pt eating less than 50% of meals without improvement. Refused breakfast today. Hx 40 lb wt loss. Not drinking much Ensure or even foods brought in from outside source. Recommend consider change IVF to clinimix PPN at 100ml/hr
--- NOTE | 2020-01-17 14:42 | NUR ---
Dr. Osorio indicated that he hasn't ordered powerpicc to be placed due to possible infection and that he would consider pt finishing abx prior to placement. He indicated possibility of double lumen picc being placed in the interim with follow up for powerpic placement once abx are completed. Pt will need exercise ox testing done 48hrs prior to discharge no 72 as previously indicated. Referral had been sent to [facility] for [facility] services upon dc. CM to follow as indicated with dc planning.
[2020-01-17 14:44] VITALS: BP 112/70
--- NOTE | 2020-01-17 16:41 | NUR ---
ASSUMED CARE OF PATIENT AT SHIFT CHANGE. ASSESSMENT CHARTED. MEDICATION GIVEN PER AUG. VSS. PATIENT C/O PAIN AT NIGHT. DAY PROGRESSED, PAIN WAS MINIMIZED PER PATIENT. PATIENT C/O OF NO TO MILD PAIN. PATIENT UP WITH PT AND WORKED WITH OT WELL. PATIENT HAS A MINIMAL APPETITE BUT DID EAT A BIT OF PUDDING AND CRACKERS A SNACK BEFORE DINNER. DIETARY IS CONDSIDERING PPN. PATIENT TO HAVE A EXERCISE PULSE OX CONSULT WITH RT NO MORE THAN 48 HRS FROM DISCHARGE. PATIENT TO FINISH COURSE OF ABX THX. PRIOR TO PLACEMENT OF POWERPORT. PATIENT USING URINAL AT BEDSIDE. FLUIDS ON NEW IV PLACED THIS AFTERNOON INTACT ON L FA. PATIENT VOICES NO OTHER NEEDS AT THIS TIME. FALL PRECAUTIONS IN PLACE WILL CONTINUE TO MONITOR AND FOLLOW POC.
--- NOTE | 2020-01-17 18:18 | NUR ---
I AGREE WITH NURSING NOTE AND NURSING ASSESSMENT DONE BY SORAIDA/ORACLE EBS DEVELOPER.
[2020-01-17 19:55] VITALS: BP 107/64
[2020-01-18 03:50] VITALS: BP 146/86
--- NOTE | 2020-01-18 04:11 | NUR ---
VSS-FEBRILE OVERNIGHT WITH TEMP REACHING 102.0. CHILLS PRESENT, BECAME TACHYCARDIC WITH RATE ELEVATING TO HIGH 162. MEDICATED FOR PAIN THROUGH NIGHT, AND GIVEN TYLENOL FOR FEVER, AND MUCINEX FOR COUGH. DR FLORES PAGED, AWAITING CALL BACK. HEART RATE STARTED TO DECLINE TEMPERATURE WENT DOWN. FALL PRECAUTION IN PLACE, CALLS APPROPRIATELY FOR ANY NEEDED ASSISTANCE.
[2020-01-18 07:36] VITALS: BP 90/54
--- NOTE | 2020-01-18 14:29 | NUR ---
CARE TEAM INDICATED THATPT'S WBS IS INCREASED AND TAHT PT HAS FEVER AGAIN. CHART INDICATES THAT PT IS ON 2L O2 INSTEAD OF THREE AT THIS TIME. CM FOLLOWING REGARDING DC PLANNING.
[2020-01-18 15:22] VITALS: BP 101/53
--- NOTE | 2020-01-18 18:21 | NUR ---
ASSUMED CARE OF PATIENT AT SHIFT CHANGE. ASSESSMENT CHARTED. MEDICATIONS GIVEN PER MAR. VSS. ASSESSMENT CHARTED. PATIENT IS A&OX4 BUT LETHARGIC TODAY. C/O DIZZINESS ON EXCERTION. PATIENT C/O DIZZINESS AND N/V AFTER WORKING WITH PT. DENIES PAIN. VOIDS WELL IN URINAL. AFEBRILE AFTER TYLENOL THX. MONITORED FREQUENTLY. VOICES NO OTHER NEEDS AT THIS TIME WILL CONTINUE TO MONITOR
--- NOTE | 2020-01-18 18:59 | NUR ---
I AGREE WITH NURSING NOTE AND NURING ASSESSMENT DONE BY SORAIDA/PRIVATE DUTY RN.
[2020-01-18 20:45] VITALS: BP 102/67
--- NOTE | 2020-01-19 06:00 | NUR ---
Pt. rested quietly at intervals during the night when checked on during frequent rounds. He has been given po pain meds (see emar) for c/o generalized pain with some relief noted. He has been sinus rythmn most of the shift, but heart rate can elevate into the 130's with activity. No other complaints offered.
[2020-01-19 08:09] VITALS: BP 116/55
--- NOTE | 2020-01-19 14:21 | NUR ---
CM CALLED AND TOUCHED BASE WITH PT'S SON AGAIN THIS DAY. CM INDICATED THAT AT THIS TIME WE ARE WAITING ON PT'S WBC TO GO DOWN AND FOR PT TO BE WITHOUT FEVER TO HAVE POWER PORT OR DOUBLE LUMEN PICC PLACED FOR OP CHEMO TREATMENT. CM INDICATED THAT REFERRAL HAD BEEN SENT TO [facility] AND THEY ARE FOLLOWING FOR POSSIBLE SERVICES UPON DC. CM INDICATED THAT PT IS STILL NEEDING O2 RIGHT NOW AND THAT IF PT NEEDS IT UPON DC IT CAN BE ORDERED THROUGH HIS INSURANCE. SON INDICATED HE IS LOOKING AT TAKING MEDICAL LEAVE FROM HIS JOB TO BE ABLE TO ASSIST PT UPON DC AND WANTS TO BETTER UNDERSTAND WHAT HIS NEEDS MIGHT BE UPON DC. HE INDICATED HE WAS INTERESTED IN GETTING A SHOWER CHAIR AND ASKED ABOUT BEING HIS DAD'S PAID CAREGIVER. CM SPOKE WITH HIM ABOUT HAVING [employer] ASSESS FOR POSSIBLE MEDICAID A SECONDARY AND HCBS. CM EMAILED [employer] AND REQUESTED ASSESSMENT. CM EMAILED SON INFO ON [employer]. CM NOTIFIED PHYSICAIN THAT SON WOULD APPRECIATE THAT HE TOUCH BASE ON PLAN OF CARE. CM TO FOLLOW INDICATED WITH DC PLANNING.
[2020-01-19 15:09] VITALS: BP 93/58
--- NOTE | 2020-01-19 16:32 | NUR ---
PT IS A&OX4, PT HAD LOW GRADE FEVER OF 100.2 WITH TYLENOL INTERVENTIONS FEVER 98.0. SON VISIT TODAY WITH QUESTIONS FOR CM REGARDING TAKING CARE OF HIS FATHER AT HOME. PT HAS IV ANTIBIOTIC LEFT FOREARM WITH D5. PT IS CONTINENT OF BOWEL AND BLADDER WITH URINAL, AMBULATES WITH ASSIST. FALL PRECAUTIONS IN PLACE, WILL CONTINUE TO MONITOR.
[2020-01-19 20:24] VITALS: BP 110/82
[2020-01-20] VITALS (8 sets, daily range): BP systolic 91–143; BP diastolic 50–88
--- NOTE | 2020-01-20 01:49 | NUR ---
DR FLORES INFORMED REGARDING ELEVATED HR, ACUTE CONFUSION AND ELEVATED TEMP. ORDERS RECEIVED. WILL CONTINUE TO MONITOR.
--- NOTE | 2020-01-20 03:14 | NUR ---
ASSMED CARE OF PT AT 1900HRS. PT AOX4 AT THE TIME OF ASSESSMENT AND LET NEEDS BE KNOWN. FALL PRECAUTION IN PLACE. IVF CONTINUED. PT REPORTED SOME PAIN AND WAS TREATED WITH PRN PAIN MEDS. PT HAD A TEMP AND PRN TYLENOL GIVEN. PT WAS SR/ST ON TELE. PT DENIED NAUSEA. O2 CONTINUED AT 2L VIA NC. PT STILL DESATS ON RA. PT WILL BE MOVED CLOSER TO NURSE'S STATION FOR CLOSER OBSERVATION. WILL CONTINUE TO MONITOR.
--- NOTE | 2020-01-20 14:07 | NUR ---
FAXED CLINICAL UPDATE TO [facility] RECEIVED CONFIRMATION AND LEFT MSG WITH INTAKE OF POSS DC TODAY. DP TO FOLLOW.
--- NOTE | 2020-01-20 15:19 | NUR ---
PT HAD EXERCISE OX TEST DONE THIS DAY AND DIDN'T QUALIFY FOR HOME O2. PT WAS TAKEN OFF OF O2 AND SATS REMAIN GOOD. [facility] INDICATED THAT THEY WILL BE AT [place] OVER WEEKEND AND WOULDN'T BE ABLE TO DO SOC UNTIL THURSDAY. REFERRAL SENT TO [facility]. CM HAD ATTEMPTED EMAIL TO PT'S SON WITH INFO ON [facility] [employer] BUT IT DIDN'T GO THROUGH. 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 [employer] WAS TO ASSESS FOR POSSIBLE SECONDARY MEDICAID APPLICATION. CARE TEAM INDICATED PT MAY BE MEDIALLY STABLE TO DC HOME IN THE NEXT 24-48 HRS. IF MEDICALLY STABLE TO DC OVER THE WEEKEND CONTACT [facility] AT FAX ORDERS TO . CM ABLE TO FOLLOW INDICATED WITH DC PLANNING.
--- NOTE | 2020-01-20 18:30 | NUR ---
ASSUMMED CARE OF PATIENT AT SHIFT CHANGE. ASSESSMENT CHARTED. MEDICATION GIVEN PER AUG. VSS. REMAINS AFEBRILE AND DOES NOT C/O PAIN AT THIS TIME. PATIENT SHOWERED TODAY WITH OT AND TOLERATED WELL. PATIENT APPEARS TO BE IN GOOD SPIRITS THIS DAY. IV REMAINS INTACT WITH FLUIDS. PATIENT UP X 1 AND TOLERATES WELL. PATIENT VOICES NO OTHER NEEDS AT THIS TIME. WILL CONTINUE TO MONITOR AND FOLLOW PLAN OF CARE
--- NOTE | 2020-01-21 05:19 | NUR ---
ASSUMED PT CARE AT 1920. PT IS ALERT TO SELF AND SITUATION. IV IN LEFT WRIST. PT USES URINAL IN THE BED. PT TAKES MEDS WHOLE. PT STATES PAIN IN ABDOMEN IS AT 4/10 PT STATES MEDS ADMINISTERED. PAIN IS AT 6/10. BOTH TIMES PT WAS ASLEEP AFTER RECEIVING. PT IS RESTING IN ROOM. PT STATES HE DOES NOT WANT ANY MORE PAIN MEDS. WILL CONTINUE TO MONITOR.
[2020-01-21 07:42] VITALS: BP 138/66
--- NOTE | 2020-01-21 12:21 | NUR ---
Received awake on bed. Due medications given as prescribed, able to swallow meds w/o difficulty. On room air. On telemetry; ST, no complaints of chest pain, crushing sensation and heaviness. May have O2 at 1-2lpm as needed. On regular diet, encouraged to eat and drink, with poor appetite, offered snacks and alternative menu- will let staff know; no nausea, no vomiting and no abdominal pain noted. Able to use urinal- output measured and recorded accordingly; to collect urine specimen- pt instructed and will let staff know once specimen is available. With IVF at 100cc/hr, infusing well at L wrist. Pt complained of pain, due PRN pain meds given as prescribed; pt made aware that pain meds are available as needed. Assisted in ADLs. Falls bundle in place. W/E CM called and said pt may go home with HH once medically stable, informed CM that Dr Iyer's associate came this morning and ordered blood cultures since pt has been having febrile episodes for the past few days. To continue monitoring patient.
[2020-01-21 12:47] LABS: MCH 27.2 pg (26.0-34.0); MCV 87.3 fL (80.0-100.0)
[2020-01-21 12:52] LABS: HEMATOCRIT 37.3 % (42.0-52.0); HEMOGLOBIN 11.6 gm/dL (14.0-18.0); MCHC 31.2 g/dL (28.0-37.0); PLATELET COUNT 376 thou/uL (150-400); RBC 4.28 mil/uL (4.50-6.00)
[2020-01-21 12:57] LABS: WBC 61.8 thou/uL (4.0-11.0)
[2020-01-21 13:00] LABS: ALBUMIN 2.2 g/dL (3.4-5.0); CALCIUM 9.4 mg/dL (8.5-10.1); POTASSIUM 4.9 mmol/L (3.5-5.1); TOTAL BILIRUBIN 0.8 mg/dL (0.2-1.0); TOTAL PROTEIN 8.3 g/dL (6.4-8.2)
[2020-01-21 13:43] LABS: URINE BILIRUBIN NEGATIVE (Negative); URINE BLOOD 1+ (Negative); URINE CLARITY CLEAR; URINE COLOR YELLOW; URINE GLUCOSE-RANDOM* NEGATIVE (Negative); URINE KETONES NEGATIVE (Negative); URINE LEUKOCYTES-REFLEX NEGATIVE (Negative); URINE NITRITE-REFLEX NEGATIVE (Negative); URINE PROTEIN (DIPSTICK) NEGATIVE (Negative)
[2020-01-21 13:52] LABS: BACTERIA-REFLEX 1-9 Few /HPF (None Seen); CASTS None Seen /LPF (None Seen); CRYSTALS None Seen /LPF (None Seen); SQUAMOUS None Seen /LPF (0-3); URINE RBC 0-2 Rare /HPF (0-2); URINE WBC-REFLEX 0-5 Rare /HPF (0-5)
[2020-01-21 13:55] LABS: ABSOLUTE NEUTROPHILS 55.6 thou/uL (1.4-8.2); PLATELET ESTIMATE NORMAL
[2020-01-21 15:21] VITALS: BP 126/67
[2020-01-21 20:14] VITALS: BP 120/71
[2020-01-22 04:18] VITALS: BP 138/72
--- NOTE | 2020-01-22 04:43 | NUR ---
ASSUMED CARE OF PT AT 1900HRS. PT AOX4 AND LETS NEEDS BE KNOWN. FALL PRECAUTION IN PLACE. PT HAD A BM THIS SHIFT. PT REPORTED SOME PAIN AND WAS TREATED WITH PRN PAIN MEDS. PT RAN SR/ST ON TELE. PT WAS ABLE TO GET COMFORTABLE AND SLEEP PART OF THE SHIFT. PT HAD A SLIGHT TEMP THIS AM. TYLENOL GIVEN. NO S/S OF ACUTE DISTRESS. WILL CONTINUE TO MONITOR.
[2020-01-22 08:07] VITALS: BP 101/62
[2020-01-22 15:59] VITALS: BP 106/60
--- NOTE | 2020-01-22 18:15 | NUR ---
ASSUMED CARE AT 0700. PT IS ALERT AND ORIENTED. VSSA/RA-2L O2 PRN. NSR/TACHY ON TELE. TELE DC. TOLERATING DIET. GI/ NML. PIV WITHOUT ISSUES. SL. PRN PAIN MEDS GIVEN ORDERED. PT SBA WITH STEADY GAIT/WALKER. EDUCATED ON CALLING IF NEEDS ARISE. CALL LIGHT IN REACH. WILL CONTINUE TO MONITOR
[2020-01-22 19:50] VITALS: BP 109/62
--- NOTE | 2020-01-23 03:27 | NUR ---
ASSUMED PT CARE AT 1915. PT IS A & O. PT HAS MOMENTS OF CONFUSION. IV IS IN LEFT FORE ARM. PT DENIES PAIN. PT TOOK MEDS WHOLE. PT FELT LIKE HE HAD TO VOMIT BUT COULD NOT GET ANYTHING UP. PT WAS ADMINISTERED ZOFRAN. PT RESTING IN THE ROOM. WILL CONTINUE TO MONITOR.
[2020-01-23 05:47] LABS: HEMOGLOBIN 11.1 gm/dL (14.0-18.0)
[2020-01-23 05:51] LABS: HEMATOCRIT 34.8 % (42.0-52.0); MCH 27.3 pg (26.0-34.0); MCHC 31.8 g/dL (28.0-37.0); MCV 85.9 fL (80.0-100.0); PLATELET COUNT 387 thou/uL (150-400); RBC 4.05 mil/uL (4.50-6.00); RDW 14.9 % (10.5-14.5)
[2020-01-23 05:57] LABS: WBC 56.2 thou/uL (4.0-11.0)
[2020-01-23 06:12] LABS: CALCIUM 9.3 mg/dL (8.5-10.1); CREATININE 1.7 mg/dL (0.7-1.3); POTASSIUM 4.5 mmol/L (3.5-5.1)
--- NOTE | 2020-01-23 08:50 | NUR ---
Received consult for poor intake. RD has been following pt since admit and pt has been not eating despite multiple attempts of obtaining food preferences, supplements-pt refuses, and outside food being brought in. Continue to recommend start on clinimix PPN to start 100ml/hr and pt may require TPN once port access obtained. Please address recs with Dr Iyer.
[2020-01-23 13:53] LABS: ABSOLUTE NEUTROPHILS 48.9 thou/uL (1.4-8.2); PLATELET ESTIMATE NORMAL
--- NOTE | 2020-01-23 14:44 | NUR ---
CARE TEAM INDICATED THAT PT'S WBC IS ELEVATED AGAIN. CARE TEAM CONCRNED ABOUT PT'S PO INTAKE AND ARE AWAITING CANINE SERVICE INSTRUCTOR TRAINER INPUT. [facility] CAN ACCEPT PT FOR HH SERVICES ONCE MEDICALLY STABLE. PT DIDN'T NEED HOME 02 UPON DC. CM TO FOLLOW INDICATED WITH DC PLANNING.
[2020-01-23 15:22] VITALS: BP 183/80
[2020-01-23 19:40] VITALS: BP 122/59
--- NOTE | 2020-01-23 21:19 | NUR ---
Assumed patient care at 0715. Vital signs stable, LSCTA, ABD is tender and distended; he complains of pain in this area ("level eight to ten"). His appetite is poor, as his abdominal pain is not well controlled. He was given Fentanyl 75mcg at 1044. He later reported that medication only helped a little with this pain. He has spent most of the day ersting in bed with eyes closed. Patient has been incontinent of urine and bowel x's 1 today. Report given to on-coming nurse.
--- NOTE | 2020-01-24 03:56 | NUR ---
ASSUMED PT CARE AT 1915. VSS. PT HAS A LEFT FOREARM SALINE LOCKED. PT IS A&O TO SELF AND TO SITUATION. PT GETS CONFUSED SOMETIMES. PT IS AWARE OF HIS LIMITS. PT DENIES PAIN. PT TAKES MEDICATION. STATES THAT HE JUST FEELS ICKY. PT IS RESTING IN HIS ROOM. WILL CONTINUE TO MONITOR.
[2020-01-24 05:45] VITALS: BP 176/108
[2020-01-24 07:33] VITALS: BP 123/60
--- NOTE | 2020-01-24 12:18 | NUR ---
ASSUMED CARE AT 0700. PT IS ALERT AND ORIENTED/FORGETFUL. VSSA/2L O2. GI/ NML. TOLERATING DIET. PIV IN PLACE. C/O PAIN AND NAUSEA AT TIMES. MEDS GIVEN PRN ORDERED. FALL PRECAUTIONS IN PLACE. EDUCATED PT TO CALL IF NEEDS ARISE. CALL LIGHT IN REACH. WILL CONTINUE TO MONITOR PT DAUGHTER CALLED, UPDATE GIVEN.
--- NOTE | 2020-01-24 14:27 | NUR ---
FAXED CLINICAL UPDATE TO [facility] SPOKE WITH JUAN M IN INTAKE SHE RECEIVED UPDATE.
[2020-01-24 15:18] VITALS: BP 111/58
[2020-01-24 20:16] VITALS: BP 109/64
--- NOTE | 2020-01-25 03:44 | NUR ---
ASSUMED PT CARE AT APPROX 1915. VSS. PT IS ALERT TO SELF AND SITUATION. PT STATES THAT HE IS NOT IN PAIN AND LATER IN THE EVENING STATES THAT HE IS IN PAIN AT A 7.PT UNDRESSES FROM TIME TO TIME. PT KEEPS A SHEET/ BLANKET ON HIM. ADMINISTERED PAIN MEDICATION. PT USES URINAL TO VOID. WILL CONTINUE TO MONITOR.
[2020-01-25 07:40] VITALS: BP 113/66
[2020-01-25 09:19] VITALS: BP 113/66
[2020-01-25] MEDS ORDERED: CARDIZEM CD120 MG PO (13:08)
--- NOTE | 2020-01-25 13:51 | NUR ---
PT DISCHARGING TODAY TO HOME WITH [facility] FAXED DC ORDERS/SUMMARY SPOKE WITH JUAN M IN INTAKE SHE RECEIVED ORDERS AND WILL CALL PT AND SET UP VISITS.
--- NOTE | 2020-01-25 18:44 | NUR ---
PT ALERT AND ORIENTED TIMES THREE, BUT SOMEWHAT SLOW TO RESPOND WITH PERIODS OF CONFUSION. VSS. PT DENIES PAIN. PT TOLERATES MEDS AND MEALS. PLANS TO DC TODAY.
== END 2020-01-25 19:02 | disposition home health service (06) | DRG 435 ==
LOC: ER 13:35 → 4W 18:20 → EROBS 18:20 → 4W 20:55
PROVIDERS: Emergency Medicine; Internal Medicine; Internal Medicine Hematology & Oncology; ADMIT Family Medicine; ATTEND Family Medicine
PROC: 0FB13ZX Excision of Right Lobe Liver, Percutaneous Approach, Diagnostic (ICD-10-PCS; principal; 2020-01-09)
DX: C25.9 Malignant neoplasm of pancreas, unspecified (principal); E43 Unspecified severe protein-calorie malnutrition; C78.7 Secondary malignant neoplasm of liver and intrahepatic bile duct; N17.9 Acute kidney failure, unspecified; E86.9 Volume depletion, unspecified; D72.829 Elevated white blood cell count, unspecified; D64.9 Anemia, unspecified; E86.0 Dehydration; K21.9 Gastro-esophageal reflux disease without esophagitis; K59.00 Constipation, unspecified; R63.4 Abnormal weight loss; Z68.32 Body mass index [BMI] 32.0-32.9, adult; Z79.899 Other long term (current) drug therapy; Z83.3 Family history of diabetes mellitus; Z86.010 Personal history of colon polyps
CPT/HCPCS: 10045

== ENCOUNTER 2020-02-04 15:10 | Inpatient (IN) | payer OTHER ==
[~2020-02-04] VITALS: Ht 193 cm; Wt 111.6 kg
[~2020-02-04 15:10] MED LIST: B COMPLEX1 EACH; CARDIZEM CD120 MG PO; CENTRUM SILVER1 EAC7; D3-200050 MCG; DORZOLAMIDE 2%10 ML; FAMOTIDINE 20 M20 MG; FLEXERIL; MELOXICAM15 MG; METRONIDAZOLE500 M4; NORVASC 2.5 MG2.5 M1; OSTEO BI-FLEX1 EAC1; TRAVOPROST2.5 ML
[2020-02-04 15:16] VITALS: BP 95/65
[2020-02-04 15:40] LABS: HEMATOCRIT 36.8 % (42.0-52.0); HEMOGLOBIN 11.6 gm/dL (14.0-18.0); MCH 26.6 pg (26.0-34.0); MCHC 31.4 g/dL (28.0-37.0); MCV 84.7 fL (80.0-100.0); PLATELET COUNT 313 thou/uL (150-400); RBC 4.34 mil/uL (4.50-6.00); RDW 15.5 % (10.5-14.5)
[2020-02-04 15:43] LABS: WBC 68.6 thou/uL (4.0-11.0)
[2020-02-04 15:44] LABS: CALCIUM 9.4 mg/dL (8.5-10.1); CREATININE 2.6 mg/dL (0.7-1.3); POTASSIUM 5.3 mmol/L (3.5-5.1)
[2020-02-04 15:50] LABS: ALBUMIN 1.8 g/dL (3.4-5.0); TOTAL BILIRUBIN 1.5 mg/dL (0.2-1.0); TOTAL PROTEIN 8.8 g/dL (6.4-8.2)
[2020-02-04 16:34] LABS: ABSOLUTE NEUTROPHILS 56.3 thou/uL (1.4-8.2)
[2020-02-04 16:35] LABS: ANISOCYTOSIS 1+; POLYCHROMASIA SLIGHT
[2020-02-04 17:30] LABS: URINE BILIRUBIN 2+ (Negative); URINE BLOOD 2+ (Negative); URINE CLARITY SL CLOUDY; URINE COLOR YELLOW; URINE GLUCOSE-RANDOM* NEGATIVE (Negative); URINE KETONES NEGATIVE (Negative); URINE LEUKOCYTES-REFLEX TRACE (Negative); URINE NITRITE-REFLEX POSITIVE (Negative); URINE PROTEIN (DIPSTICK) 2+ (Negative); URINE SPECIFIC GRAVITY >= 1.030 (1.005-1.035)
[2020-02-04 17:33] LABS: ICTOTEST (BILI CONFIRMATORY) Positive (Negative)
[2020-02-04 17:38] LABS: URINE WBC-REFLEX 6-15 Few /HPF (0-5)
[2020-02-04 17:39] LABS: CASTS None Seen /LPF (None Seen); CRYSTALS None Seen /LPF (None Seen); SQUAMOUS None Seen /LPF (0-3); URINE RBC 3-10 Few /HPF (0-2)
[2020-02-04 22:01] VITALS: BP 102/68
[2020-02-04 22:30] VITALS: BP 103/63
[2020-02-05 03:11] VITALS: BP 100/64
[2020-02-05 04:12] LABS: HEMATOCRIT 32.6 % (42.0-52.0); MCH 26.3 pg (26.0-34.0); MCHC 30.7 g/dL (28.0-37.0); MCV 85.7 fL (80.0-100.0); PLATELET COUNT 243 thou/uL (150-400); RDW 15.9 % (10.5-14.5)
[2020-02-05 04:18] LABS: WBC 59.2 thou/uL (4.0-11.0)
[2020-02-05 04:25] LABS: ALBUMIN 1.4 g/dL (3.4-5.0); CREATININE 2.5 mg/dL (0.7-1.3); TOTAL BILIRUBIN 2.1 mg/dL (0.2-1.0); TOTAL PROTEIN 7.6 g/dL (6.4-8.2)
--- NOTE | 2020-02-05 04:26 | NUR ---
VSS-LOW GRADE TEMPERATURE SINCE ADMISSION. DR FLORES IN TO SEE PATIENT, AWARE OF CRITICAL WBC COUNT. SLIGHT NAUSEA CONTINUES, RELIEF NOTED WITH IV ZOFRAN. C/O GENERALIZED ABDOMINAL PAIN THAT HAS BEEN RATED HIGH AN 8/10. PARTIAL RELIEF WITH IV PAIN MEDICATION, ORAL PAIN MEDICATION MAKES NAUSEA WORSE. VOIDING WITHOUT DIFFICULTY, NO BM SINCE ADMISSION. FATIGUED, AND WEAK, PREFERRING TO USE BED BABIN VERSUS GETTING OUT OF BED TO USE TOILET OR BSC. TOLERATING ORAL FLUIDS. FALL PRECAUTIONS IN PLACE, CALLS APPROPRIATELY FOR ANY NEEDED ASSISTANCE.
[2020-02-05 04:27] LABS: POTASSIUM 5.6 mmol/L (3.5-5.1)
[2020-02-05 05:46] LABS: ABSOLUTE NEUTROPHILS 57.4 thou/uL (1.4-8.2); ANISOCYTOSIS 1+; LARGE PLATELETS FEW; NUCLEATED RBCS 1 /100WBC; PLATELET ESTIMATE NORMAL; POIKILOCYTOSIS 1+; TARGET CELLS 1+
[2020-02-05 07:51] VITALS: BP 133/84
--- NOTE | 2020-02-05 15:34 | NUR ---
ASSUMED CARE APPROX 0700. PT ALERT AND ORIENTED X4. ASSESSMENT CHARTED AND VSS. PT DENIES PAIN THIS SHIFT. PT DENIES NAUSEA THIS SHIFT. HE SLEPT FOR MOST OF THE DAY. PT ON 2LNC W/ NO SIGNS OF DISTRESS NOTED. LACTIC ACID LEVELS TRENDING DOWN FROM 5.8. NOW 2.[address] FLORES NOTIFIED. ORDERS GIVEN TO D/C LACTIC ACID LAB DRAWS. ALSO NOTIFIED THAT PT HAS UTI. ORDER GIVEN FOR ZOSYN 4.5GM Q6HRS. ORDER WAS CHANGED TO ONETIME ORDER. WILL CONTINUE TO MONITOR.
[2020-02-05 16:06] VITALS: BP 143/86
[2020-02-05 19:36] VITALS: BP 123/60
--- NOTE | 2020-02-05 19:50 | H ---
[facility] [place] [address] [place] [address] HISTORY AND PHYSICAL Name: ERIC ALLEN Room #: 361-P [facility] IN M.R.#: [id number] Admission: 02/04/20 Attend Phys: Josue Iyer MD, FAAF Discharge: Date of : 48 Report #: [id number] THIS REPORT FOR: cc: Josue Iyer MD FAAFP FACEP Josue Iyer MD FAAFP FACEP Josue Iyer MD FAA FACEP ~ CC: Josue Osorio DATE OF SERVICE: 02/04/2020 CHIEF COMPLAINT: Nausea and vomiting; volume depletion. HISTORY OF PRESENT ILLNESS: The patient is a 69-year-old black male, well known to me, patient of mine for years with metastatic adenocarcinoma. He was hospitalized here earlier this month and discharged home with home health. Over the past 48 hours, he has been vomiting, not able to keep down foods or fluids, admitted through the ER with volume depletion and urinary tract infection. He was started on Zosyn in the Emergency Room as well as IV fluids and IV antiemetics. He is feeling better now after IV fluids and the antinausea medicine. He is scheduled to have a port placed on Thursday. PAST MEDICAL HISTORY: Recent diagnosis of metastatic adenocarcinoma, colon polyps, glaucoma, hypertension, gastroesophageal reflux disease, constipation. MEDICATIONS: Norvasc 10 mg 1 p.o. daily, meloxicam 15 mg 1 p.o. daily, Flexeril 10 mg 1 p.o. t.i.d. p.r.n. muscle spasm, famotidine 20 mg 1 p.o. b.i.d., Benefiber and vitamin D3. ALLERGIES: No known drug allergies. FAMILY HISTORY: No cancer. 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 He has a son in the [place] area. REVIEW OF SYSTEMS: GENERAL: Frequent nausea and vomiting, poor oral intake over the last 24-48 hours, generalized debility. EYES: No visual changes. ENT: No problems with hearing, swallow, taste or smell. CARDIOVASCULAR: No chest pain or palpitations. RESPIRATORY: No difficulty breathing. GASTROINTESTINAL: Nausea and vomiting and intervals of abdominal pain with his metastatic adenocarcinoma. [facility] [address] [place] [address] HISTORY AND PHYSICAL Name: ERIC ALLEN Room #: 361-P [facility] IN M.R.#: [id number] Admission: 02/04/20 Attend Phys: Josue Iyer MD, FAAF Discharge: Date of : 48 Report #: [id number] GENITOURINARY: No problems urinating. MUSCULOSKELETAL: Has arthritis, controlled to some degree with meloxicam. NEUROLOGIC: No paresis, paralysis or paresthesias. PSYCHIATRIC: No disturbing thoughts. DERMATOLOGIC: No disturbing lesions or rash. Remainder of system review is negative. OBJECTIVE: VITAL SIGNS: Temperature is 98.3, pulse 111, respirations 25, blood pressure 95/65, most recently 102/68 after IV fluids, respirations 20, O2 sat on room air is 98%. GENERAL: He is alert, but appears fatigued, conversant and speaks in full sentences, answers questions appropriately. HEENT: Pupils equal, round, reactive to light and accommodation. Extraocular muscles intact. Pharynx unremarkable. NECK: Supple. COR: S1, S2. CHEST: Clear. ABDOMEN: Soft, nontender. EXTREMITIES: Nonedematous. NEUROLOGICAL: He is intact without focal deficit. LABORATORY EVALUATION: CBC: White count 68.6 thousand, hemoglobin 11.6, hematocrit 36.8, platelets 313,000. Serum chemistry: Sodium 142, potassium 5.3, chloride 107, CO2 of 24, anion gap 11, BUN 45, creatinine 2.6, glucose 117, AST 116, total bilirubin 1.5, direct bilirubin 1.0, calcium is 9.4, alkaline phosphatase 538, ALT 48, total protein 8.8, albumin 1.8, estimated glomerular filtration rate is 30. First lactic acid is 3.2, rises over 4 hours to 5.8. CPK 33. Urinalysis from a clean catch specimen shows a yellow, slightly cloudy urine, specific gravity greater than 1.030, pH 5.0, 2+ protein was noted, negative for glucose, negative ketones, 2+ bilirubin is seen. Positive Ictotest confirming bilirubin's presence, 2+ blood, positive nitrite, urobilinogen is 4.0, trace leukocytes seen, no squamous epithelial cells seen under the microscope, 6-15 white cells per high powered field, 3-10 red cells per high powered field, 10-30 moderate bacteria, no casts or crystals. Chest x-ray done from the Emergency Department shows a chronic elevation of right hemidiaphragm and bibasilar atelectasis. Ultrasound of the abdomen was done also from the Emergency Department. This showed multiple hepatic lesions, echogenic debris in the gallbladder and a small area of cortical calcification in the lower pole of the left kidney. ASSESSMENT: Nausea, vomiting, volume depletion, urinary tract infection, acute kidney injury, metastatic adenocarcinoma, leukocytosis. [facility] [address] [place] [address] HISTORY AND PHYSICAL Name: ERIC ALLEN Room #: 361-P ADM IN M.R.#: [id number] Admission: 02/04/20 Attend Phys: Josue Iyer MD, FAADamian Discharge: Date of : 48 Report #: [id number] PLAN: Admit to hospital, IV fluid, volume resuscitation, antiemetics, IV Zosyn. Follow cultures. Follow labs longitudinally. <ELECTRONICALLY SIGNED> By: Josue Iyer MD, KISHA, FACEP 02/05/20 1950 [id number] 0046 Josue Iyer MD, KISHA, FACEP /nt
--- NOTE | 2020-02-05 21:30 | NUR ---
PER FAN CORCORAN TO DC ENHANCED ISOLATION.
--- NOTE | 2020-02-05 23:55 | NUR ---
PATIENT TRANSFERRED FROM 3W ROOM 361 TO ROOM 449. ARRIVED AT 2330 VIA BED AND RN. ALERT AND ORIENTED X4. PLEASANT AND COOPERATIVE. IVF INFUSING W/O COMPLICATION. DENIES PAIN. ORDER PLACED BY THIS NURSE FOR EXTENTION ON BED DUE TO PATIENTS HEIGHT. PATIENT WILL BE ON BEDREST USING BEDPAN AND URINAL. RESTING QUIETLY. WILL MONITOR.
[2020-02-06 00:03] VITALS: BP 103/63
[2020-02-06 06:10] LABS: HEMATOCRIT 31.8 % (42.0-52.0); HEMOGLOBIN 9.8 gm/dL (14.0-18.0); MCH 26.4 pg (26.0-34.0); MCHC 30.8 g/dL (28.0-37.0); MCV 85.7 fL (80.0-100.0); PLATELET COUNT 209 thou/uL (150-400); RBC 3.72 mil/uL (4.50-6.00); RDW 15.9 % (10.5-14.5)
[2020-02-06 06:15] LABS: WBC 66.3 thou/uL (4.0-11.0)
[2020-02-06 06:29] LABS: CALCIUM 8.1 mg/dL (8.5-10.1); CREATININE 2.2 mg/dL (0.7-1.3)
[2020-02-06 07:34] VITALS: BP 114/77
--- NOTE | 2020-02-06 08:40 | EKG ---
[facility] [place] [address] ELECTROCARDIOGRAM REPORT Name: ERIC ALLEN Room #: 449-I ADM IN M.R.#: [id number] Admission: 02/04/20 Attend Phys: Josue Iyer MD, FAAF Discharge: Date of : 48 Report #: [id number] THIS REPORT FOR: cc: Josue Iyer MD FAA FACE Josue Iyer MD FAA FACE Hernán Clark MD [facility] THIS REPORT FOR: //name// [facility] ED Test Date: 2020-02-04 Test Time: 15:14:50 Pat Name: ERIC ALLEN Department: Room: [facility] Gender: M Grain Inspector: KAPIL : 1950 Requested By: Rhett Adame Order Number: [id number] MD: Hernán Clark Measurements Intervals [place] Rate: 113 P: 16 WY: 140 QRS: 27 QRSD: 80 T: 19 QT: 334 QTc: 458 Interpretive Statements Sinus tachycardia Low voltage, precordial leads Poor R wave progression Compared to ECG 01/13/2020 08:23:18 Atrial premature complex(es) no longer present Electronically Signed On 02-06-2020 8:40:18 CDT by Hernán Clark [email or web address] <ELECTRONICALLY SIGNED> By: Hernán Clark MD, FAC 02/06/20 0840 1514 1514 Hernán Clark MD, FAC /EPI
[2020-02-06 12:15] LABS: ABSOLUTE NEUTROPHILS 61.7 thou/uL (1.4-8.2)
[2020-02-06 12:16] LABS: LARGE PLATELETS OCCASIONAL
--- NOTE | 2020-02-06 13:32 | NUR ---
Assumed patient care at 0715. Patient is a patient of Dr Iyer's. Dr Iyer was advised of patient's increased WBC count this am per off-going noc nurse. No new orders received. Vital signs stable, LSCTA, ABD is destended and tender. He has been given IV push Fentanyl q 4 hours and Oxycodone po for abdominal pain of "level six to seven" with moderate pain control. Patient's skin is clean, dry and intact. Patient uses the urinal, urine is dark flor. He is on a clear liquid Diet. Patient to have Port Placement today. Will continue to monitor.
[2020-02-06 15:22] VITALS: BP 118/75
[2020-02-06 20:00] VITALS: BP 127/79
--- NOTE | 2020-02-07 03:57 | NUR ---
PT IS RESTING IN ROOM ON THE BED. PT IS ALERT TO SELF AND SITUATION, COMETIMES FORGETFUL. PT HAS A RIGHT FOREARM IV SALINE LOCKED. AN ATIBIOTIC IS RUNNING. PT IS ON 2L VIA NASAL CANULA. PT COMPLAINS OF PAIN AT A 6 OT OF 10. ADMINISTERED OXYCODONE FOR PAIN. PT PREFERS TO NOT WEAR CLOTHES. PT USES THE URINAL AND HAS RADHA COLORED URINE. WILL CONTINUE TO MONITOR.
--- NOTE | 2020-02-07 07:16 | HC ---
[facility] [place] [address] CONSULTATION Name: ABHINAV ALLEN Room #: 449-I ADM IN M.R.#: [id number] Admission: 02/04/20 Attend Phys: Josue Iyer MD, FAA Discharge: Date of : 48 Report #: [id number] THIS REPORT FOR: cc: Josue Iyer MD [facility] Josue Iyer MD [facility] Arpan Osorio MD ~ CC: Sonido Mason MD HISTORY OF PRESENT ILLNESS: The patient is a very pleasant 69-year-old gentleman with pancreatic cancer metastatic to the liver. He had recently been in the hospital for an extended febrile, dehydration, nausea and vomiting episode. I had an outpatient telehealth visit with the patient last week. At that time, we had tentative plans to proceed with outpatient port placement and chemotherapy with Gemzar and Abraxane. Now in time, the patient sounds like his son was more pushing the cart than he was, though he is still willing to consider. He came in with several days of worsening nausea, vomiting, and abdominal pain. It looks like his UA has white cells and nitrite screen negative, so this would suggest a UTI. He is on Zithromax and ceftriaxone, is feeling slightly better, though he still has significant issues with nausea, vomiting, and abdominal pain. His hydration has improved. PAST MEDICAL HISTORY: Notable for the pancreatic cancer, also leukocytosis, which a bone marrow had been done earlier. 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 Nonsmoker, no alcohol, no street drugs. FAMILY HISTORY: Father had a stroke about age 50. Mother had diabetes. Two sisters have diabetes. Three children are alive and well. I think there is a son and daughter who live with him, are nearby. He has a son, Abhinav who had been on the telemedicine phone call in last visit. MEDICATIONS: At this time in the hospital currently include magnesium citrate one time, Zofran p.r.n., Percocet p.r.n., fentanyl p.r.n., IV fluids, also he had received a dose of Zosyn not sure if this will be continued. PHYSICAL EXAMINATION: GENERAL: The patient appears his stated age. He is somewhat distracted in his thinking. VITAL SIGNS: Height is 6 feet 4 inches or 193 cm; weight 246 pounds or 111.6 kilograms. Blood pressure 103/62, O2 sat 97%, respirations 18, pulse 96, afebrile at 98.1. NEUROLOGIC: Face is symmetric. Speech and thought pattern normal, though slightly slow. [facility] [address] [place] [address] CONSULTATION Name: ABHINAV ALLEN Room #: 449-I ADM IN M.R.#: [id number] Admission: 02/04/20 Attend Phys: Josue Iyer MD, FAAF Discharge: Date of : 48 Report #: [id number] LYMPHATICS: No enlarged lymph nodes in the supraclavicular, cervical, axillary or inguinal epidural region. ABDOMEN: Slightly obese, has lost weight. EXTREMITIES: Without clubbing or cyanosis. There may be some trace edema. LABORATORY DATA: Here notable for BUN of 34, creatinine at 2.2, AST 87, which has come down from 116; total bilirubin 2.1, alkaline phosphatase 428, ALT 43, albumin 1.4. White count 20260, hemoglobin 9.8, platelets are 209,000. Differential has a few extra neutrophils, no acute forms, COVID negative. CEA previously elevated at 5. CA 19-9 previously elevated at 568. ASSESSMENT AND PLAN: 1. Pancreatic cancer with liver mets. We will continue discussion about outpatient chemotherapy. The patient seems unsure whether he wishes to proceed with chemotherapy. We will see how he feels after antibiotics and treatment of possible urinary tract infection. 2. Abdominal pain. Continue opiates. 3. Nausea, vomiting, dehydration. Continue IV fluids and antiemetics. 4. History of hypertension. Meds per others. 5. Glaucoma. Meds per others. 6. Gastroesophageal reflux disease, acid blockers per others. 7. Leukocytosis, appears to be mostly related to cancer presents. We will follow with you. <ELECTRONICALLY SIGNED> By: Arpan Osorio MD 02/07/20 [id number] Arpan Osorio MD /nt
[2020-02-07 07:52] VITALS: BP 124/77
[2020-02-07 09:07] LABS: APTT 27.4 Seconds (24.5-32.8); INR 1.5; PROTIME 15.1 Seconds (9.3-11.4)
--- NOTE | 2020-02-07 11:25 | NUR ---
PT ADMITTED RELATED TO [facility], N/V, DEHYDRATION. CM REVIEWED CHART AND SPOKE WITH CARE TEAM. PT FAMILIAR TO CM FROM PREVIOUS ADMISSION. PT INDICATED HE LIVES IN AN APARTMETN WITH A ROOMMATE WITH 2-3 STEPS TO ENTER AND NO STEPS INSIDE. PT INDICATED HE HAD BEEN INDEPENDNET WITH [employer] AND [employer]. PT WAS ISSUED A FWW FOR HOME USE BY PROVIDER [employer]US. PT INDICATED HE PLANS TO RETURN HOME ONCE MEDICALLY STABLE. PT IS TO HAVE PORT PLACE TODAY FOR OP CHEMO TREATMENT UPON DC. PT HAD BEEN ON SERVICE WITH [facility] [employer]. ANTICIPATE PT WILL DC HOME AND RESUME HH SERVICES ONCE MEDICALLY STABLE. CM TO FOLLOW INDICATED WITH DC PLANNING.
[2020-02-07 19:23] VITALS: BP 138/90
--- NOTE | 2020-02-07 19:39 | NUR ---
Assumed pt care this am, VS stable. Pain managed with medications, parital relief was noted. REfused PT and OT today since he just got back from having the chest port placed, chest port dressing is c/d/i. Diet is advanced from clear liquids to soft/ fiber restricted to advance as tolerated as per Dr. Iyer. POC followed, with no signs or vebalizations of distress noted. SCD's on the pt. Endoresed to the night nurse.
--- NOTE | 2020-02-08 05:53 | NUR ---
VSS-AFEBRILE. C/O SIGNIFICANT ABDOMINAL PAIN THROUGH NIGHT, PARTIAL RELIEF NOTED WITH ALTERNATING IV AND PO PAIN MEDICATIONS. NAUSEA RELIEVED WITH ZOFRAN. VOIDING WELL. CALLS APPROPRIATELY WITH ANY NEEDS.
[2020-02-08 06:06] LABS: HEMOGLOBIN 9.9 gm/dL (14.0-18.0)
[2020-02-08 06:11] LABS: HEMATOCRIT 32.5 % (42.0-52.0); MCH 26.2 pg (26.0-34.0); MCHC 30.4 g/dL (28.0-37.0); MCV 86.3 fL (80.0-100.0); PLATELET COUNT 207 thou/uL (150-400); RBC 3.76 mil/uL (4.50-6.00); RDW 16.5 % (10.5-14.5)
[2020-02-08 06:15] LABS: CALCIUM 8.6 mg/dL (8.5-10.1); CREATININE 1.5 mg/dL (0.7-1.3); POTASSIUM 4.7 mmol/L (3.5-5.1)
[2020-02-08 06:26] LABS: WBC 63.1 thou/uL (4.0-11.0)
[2020-02-08 07:47] VITALS: BP 127/77
[2020-02-08 09:50] LABS: ABSOLUTE NEUTROPHILS 57.4 thou/uL (1.4-8.2)
[2020-02-08 09:51] LABS: ANISOCYTOSIS 1+; NUCLEATED RBCS 1 /100WBC
[2020-02-08 13:45] VITALS: BP 129/78
--- NOTE | 2020-02-08 19:26 | NUR ---
Assumed pt care this am, VS stable though pt's appetite was very poor d/t pain and nausea no vomiting was noted. Pt refused to have some of the meals, attempted jello and applesauce only consumed 10%. Fluids and cola were kept down, tyried a bit of his dinner (5%) was able to keep the meat down. UA ordered (clean catch) pat aware and will call nurse once done. Hydration maintained, IV and medications tolerated well. Urine is still dark yellow, using the urinal. Pt seemd lethargic not anting to get out of bed, son came to visit this pm. POC followed , endorsed to the night nurse.
[2020-02-08 19:53] VITALS: BP 135/67
--- NOTE | 2020-02-09 03:05 | NUR ---
VSS-LOW GRADE TEMPERATURE OF 100.4. CONTINUES TO C/O SIGNIFICANT ABDOMINAL PAIN THAT IS PARTIALLY RELIEVED WITH IV AND PO PAIN MEDICATIONS. REQUESTED TO WAIT FOR MAGNESIUM CITRATE UNTIL LATER THIS MORNING. REMAINS ON 2LNC. RESTED ON AND OFF THROUGH NIGHT WITH FEW NEEDS. APPEARS DEPRESSED EVIDENCED BY BEING MUCH LESS VOCAL THAN USUAL, FLAT AFFECT WHICH IS NEW, AND WANTING TO SLEEP MORE. SPENT QUITE A LOT OF TIME AT BEDSIDE WITH PATIENT DISCUSSING HIS CURRENT HEALTH CONDITION WELL PERSONAL FEELINGS ON TREATMENT PLAN. FALL PRECAUTIONS IN PLACE, CALLS APPROPRIATELY FOR ANY NEEDED ASSISTANCE.
[2020-02-09 04:42] VITALS: BP 149/72
[2020-02-09 06:51] LABS: URINE BILIRUBIN 1+ (Negative); URINE BLOOD 1+ (Negative); URINE CLARITY SL HAZY; URINE COLOR YELLOW; URINE GLUCOSE-RANDOM* TRACE (Negative); URINE KETONES NEGATIVE (Negative); URINE NITRITE-REFLEX NEGATIVE (Negative); URINE PROTEIN (DIPSTICK) TRACE (Negative); URINE UROBILINOGEN >= 8.0 E.U./dl (0.2-1.0)
[2020-02-09 06:52] LABS: BACTERIA-REFLEX 1-9 Few /HPF (None Seen); CASTS None Seen /LPF (None Seen); MUCUS 0-3 Light strn/LPF (None Seen); SQUAMOUS 0-3 Few /LPF (0-3); URIC ACID CRYSTALS >10 Many /LPF (None Seen); URINE LEUKOCYTES-REFLEX TRACE (Negative); URINE RBC 3-10 Few /HPF (0-2); URINE WBC-REFLEX 0-5 Rare /HPF (0-5)
[2020-02-09 07:10] VITALS: BP 121/78
--- NOTE | 2020-02-09 10:15 | NUR ---
cm visited with pt at bedside, cm cont to wear own face mask and face shied during bedside visit. discuss with pt if he wanted hospice eval rt oncology note and [facility]. pt and son spoke with oncology. cm notified pt pcp. send referral to [facility]. will cont following as needed for dc needs.
--- NOTE | 2020-02-09 11:47 | NUR ---
FAXED REFERRAL TO [facility] SPOKE WITH TYREL IN ADM SHE RECEIVED REFERRAL AND SHE IS GOING TO CALL PT'S FAMILY AND WILL DO A BEDSIDE EVAL. DP TO FOLLOW.
[2020-02-09 15:49] VITALS: BP 143/67
[2020-02-09 19:20] VITALS: BP 118/68
[2020-02-09 19:39] VITALS: BP 95/62
--- NOTE | 2020-02-09 20:06 | NUR ---
Assumed pt care this am, pt's appetite is very poor refused meals and would hardly drink his cola which he used to comsume. Over all feeling of the pt is "not good" stayed on the recliner for awhile then moved back to the bed. Son at the bedside. Pt is leaning towards hospice as per discussion with Oncology MD. POC followed, pain is managed with medication. Uses the urinal, did not have a bm and did not want to take the Mg Citrate. Endorsed to the night nurse.
--- NOTE | 2020-02-10 03:45 | NUR ---
VSS-AFEBRILE. LUNGS COURSE/DIMINISHED IN ALL STERN BILATERALLY. REMAINS ON 2LNC. EARLY IN SHIFT, COUGHED UP SMALL AMOUNT OF LIGHT PINK SPUTUM. NAUSEA AND ABDOMINAL PAIN CONTINUE TO CAUSE GREAT DISCOMFORT. ALTERNATED PO AND IV MEDICATIONS, PAIN WAS PARTIALLY CONTROLLED. REGLAN AND ZOFRAM WAS GIVEN FOR NAUSEA WITH COMPLETE RELIEF. MOVES AND TURNS SELF IN BED, SKIN IS INTACT. REPORTS VERY POOR APPETITE, AND REFUSED ANY OFFERED SNACKS. FALL PRECAUTIONS IN PLACE, CALLS WHEN NEEDING ANY ASSISTANCE.
[2020-02-10 06:14] LABS: MCV 86.8 fL (80.0-100.0); RBC 3.51 mil/uL (4.50-6.00)
[2020-02-10 06:20] LABS: HEMATOCRIT 30.4 % (42.0-52.0); MCH 25.6 pg (26.0-34.0); MCHC 29.5 g/dL (28.0-37.0); PLATELET COUNT 200 thou/uL (150-400); RDW 17.3 % (10.5-14.5)
[2020-02-10 06:49] LABS: ALBUMIN 1.3 g/dL (3.4-5.0); CALCIUM 8.4 mg/dL (8.5-10.1); CREATININE 1.7 mg/dL (0.7-1.3); POTASSIUM 4.2 mmol/L (3.5-5.1); TOTAL BILIRUBIN 2.8 mg/dL (0.2-1.0); TOTAL PROTEIN 7.6 g/dL (6.4-8.2)
[2020-02-10 07:15] VITALS: BP 126/67
--- NOTE | 2020-02-10 08:32 | NUR ---
cm notified by cm team that 02/09/2020 at 1745 [facility] is able to accept pt and will call today. will cont following as needed for dc needs.
--- NOTE | 2020-02-10 10:01 | NUR ---
PT IS A&OX4, VSS, AMBULATE TO CHAIR WITH 3 PERSON ASSIST. PT IS FATIGUE, AND WEAK, REFUSE TO EAT, TAKE MEDS APPROPRIATE. PT USES THE URINAL APPROPRIATE WITH SOME ASSIST. PT WILL D/C TO [facility]. FALL PRECAUTIONS IN PLACE, WILL CONTINUE TO MONITOR.
[2020-02-10 11:00] LABS: ABSOLUTE NEUTROPHILS 56.7 thou/uL (1.4-8.2); ANISOCYTOSIS 1+
--- NOTE | 2020-02-10 13:56 | NUR ---
PT DISCHARGING TODAY TO [facility] RECEIVED CONFIRMATION AND ARRANGED TRANSPORTATION BY AMBULANCE WITH [facility] FOR [phone]. FAMILY NOTIFIED OF DC AND TRANSPORT TIME. UNIT NOTIFIED.
== END 2020-02-10 18:33 | disposition hospice, home (50) | DRG 673 ==
LOC: ER 15:10 → 4W 19:01 → EROBS 19:01 → 3W 19:01 → 4W 02-05 23:13
PROVIDERS: Emergency Medicine; Radiology Diagnostic Radiology; ADMIT Family Medicine; ATTEND Family Medicine
PROC: 02H633Z Insertion of Infusion Device into Right Atrium, Percutaneous Approach (ICD-10-PCS; principal; 2020-02-07)
PROC: B548ZZA Ultrasonography of Superior Vena Cava, Guidance (ICD-10-PCS; principal; 2020-02-07)
PROC: B5181ZA Fluoroscopy of Superior Vena Cava using Low Osmolar Contrast, Guidance (ICD-10-PCS; principal; 2020-02-07)
PROC: 0JH63WZ Insertion of Totally Implantable Vascular Access Device into Chest Subcutaneous Tissue and Fascia, Percutaneous Approach (ICD-10-PCS; principal; 2020-02-07)
DX: N17.0 Acute kidney failure with tubular necrosis (principal); E43 Unspecified severe protein-calorie malnutrition; J96.01 Acute respiratory failure with hypoxia; N39.0 Urinary tract infection, site not specified; C25.9 Malignant neoplasm of pancreas, unspecified; C78.7 Secondary malignant neoplasm of liver and intrahepatic bile duct; N17.9 Acute kidney failure, unspecified; E86.9 Volume depletion, unspecified; K21.9 Gastro-esophageal reflux disease without esophagitis; E86.0 Dehydration; Z20.828 Contact with and (suspected) exposure to other viral communicable diseases; I10 Essential (primary) hypertension; K59.00 Constipation, unspecified; Z82.3 Family history of stroke; Z83.3 Family history of diabetes mellitus; Z79.899 Other long term (current) drug therapy
CPT/HCPCS: 10047; 10779